=== PATIENT | female | born 1960 | race Caucasian/White ===

== ENCOUNTER → 2016-07-08 | Outpatient (CLI) | payer OTHER ==
--- NOTE | 2016-07-08 13:51 | MR ---
EXAMINATION TYPE: MR lumbar spine wo con DATE OF EXAM: 07/08/2016 8:19 AM COMPARISON: 07/23/2015 HISTORY: 56-year-old female with low back pain w/o sciatica TECHNIQUE: Multiplanar, multisequence images of the lumbar spine were acquired. FINDINGS: Vertebral body heights are preserved. Vertebral mild disc desiccation especially in the mid to lower lumbar spine redemonstrated with mild disc height loss and posterior disc protrusion with bulging disc at L4-L5. Additional mild disc bulge s at L3-L4 and L5-S1. Ligamentum flavum thickening mid to lower lumbar spine with facet degenerative change. No suspicious bone marrow replacement. Redemonstrated fatty Modic type II endplate change at L4-L5 wi th some increasing Modic type I endplate changes towards the right at this level. Conus medullaris is normal. No suspicious bone marrow replacement. At T12-L1, no spinal canal or foraminal stenosis. At L1-L2, no spinal canal or neural foraminal stenosis. At L2-L3, minimal leftward disc bulging minimally encroaching onto the inferior left neural foramen. No spinal canal stenosis. At L3-L4, there is mild diffuse disc bulge and mild facet degenerative change. Minimal ventral impres deandra on the thecal sac without significant spinal canal stenosis. Changes result in similar mild left and minimal inferior right neuroforaminal stenosis. At L4-L5, marked hypertrophic facet arthropathy with ligamentum flavum thickening, diffuse disc bulge , posterior disc protrusion, and grade 1 anterolisthesis is also redemonstrated. Similar mild overall spinal canal stenosis with moderate to severe right neural foraminal stenosis, slightly increased an d similar moderate left neuroforaminal stenosis. Disc material closely approaches and may abuts both traversing L5 nerve roots. At L5-S1, diffuse disc bulge with facet degenerative change. Similar moderate left neuroforaminal magali nosis. No spinal canal stenosis. No prevertebral or paravertebral soft tissue abnormality seen. IMPRESSION: 1. Relatively similar degenerative changes mid to lower lumbar spine, greatest at L4-L5 with grade 1 anterolisthesis and mild spinal canal stenosis. 2. Moderate to severe right neuroforaminal stenosis at L4-L5 is slightly increased with similar moder ate left neuroforaminal stenosis. Disc material continues to closely approach and possibly abut both traversing L5 nerve roots. 3. Similar mild left neuroforaminal stenosis at L3-L4 and moderate left neuroforaminal stenosis at L5 -S1.
== END ==
LOC: RADMRIMAIN 07:30
PROVIDERS: ATTEND Neurological Surgery
DX: M48.06 Spinal stenosis, lumbar region (principal); M51.26 Other intervertebral disc displacement, lumbar region
CPT/HCPCS: 72148

== ENCOUNTER → 2016-07-09 | Outpatient (CLI) | payer OTHER ==
--- NOTE | 2016-07-09 09:52 | MR ---
EXAMINATION TYPE: MR cervical spine wo con DATE OF EXAM: 07/09/2016 9:21 AM COMPARISON: NONE HISTORY: neck pain, reddy Multiplanar MultiSpin echo imaging of the cervical spine was performed. Comparison: none C2-C3: No evidence for degenerative disc disease. No disc bulge/herniation or protrusion. No Canal stenosis. Foramina are patent bilaterally. C3-C4: Mild disc desiccation noted. Posterior disc bulge without evidence for herniation. No evidence for central stenosis. Bilateral foraminal are patent. C4-C5: No evidence for degenerative disc disease. No disc bulge/herniation or protrusion. No Canal stenosis. Foramina are patent bilaterally. C5-C6: Moderate disc desiccation identified. Mild posterocentral subligamentous disc herniation effac es the ventral thecal sac. Mild resultant central stenosis. Bilateral foraminal encroachment left gre ater than right. C6-C7: No evidence for degenerative disc disease. No disc bulge/herniation or protrusion. No Canal stenosis. Foramina are patent bilaterally. C7-T1: No evidence for degenerative disc disease. No disc bulge/herniation or protrusion. No Canal stenosis. Foramina are patent bilaterally. Cervical segments are intact. There is normal alignment. Cervical spinal cord is of normal signal. Craniovertebral junction relationships are within normal limits. Incidental multiple hemangiomas. IMPRESSION: 1. Degenerative disc disease as discussed. 2. Posterocentral disc herniation with mild central stenosis at C5-6.
== END | disposition home or self-care (01) ==
LOC: RADMRIMAIN 08:42
PROVIDERS: ATTEND Neurological Surgery
DX: M48.02 Spinal stenosis, cervical region (principal); M50.222 Other cervical disc displacement at C5-C6 level; M50.30 Other cervical disc degeneration, unspecified cervical region
CPT/HCPCS: 72141

== ENCOUNTER → 2017-02-01 | Outpatient (CLI) | payer OTHER ==
--- NOTE | 2017-02-03 09:07 | MM ---
Reason for exam: screening (asymptomatic). Last mammogram was performed 1 year and 1 month ago. History: Patient is postmenopausal. Family history of breast cancer in sister at age 58. Physical Findings: A clinical breast exam by your physician is recommended on an annual basis and results should be correlated with mammographic findings. MG Screening Mammo w CAD Bilateral CC and MLO view(s) were taken. Prior study comparison: January 09, 2016, bilateral MG screening mammo w CAD. December 08, 2013, bilateral MG screening mammo w CAD. The breast tissue is heterogeneously dense. This may lower the sensitivity of mammography. No significant changes when compared with prior studies. ASSESSMENT: Negative, BI-RAD 1 RECOMMENDATION: Routine screening mammogram of both breasts in 1 year.
== END | disposition home or self-care (01) ==
LOC: RADMAMWWP 07:19
PROVIDERS: ATTEND Family Medicine
DX: Z12.31 Encounter for screening mammogram for malignant neoplasm of breast (principal)

== ENCOUNTER → 2017-03-16 | Outpatient (CLI) | payer OTHER ==
--- NOTE | 2017-03-16 09:00 | CT ---
EXAMINATION TYPE: CT angio head DATE OF EXAM: 03/16/2017 COMPARISON: NONE HISTORY: Personal history of TIA/Cerebral infarction CT DLP: 2011 mGycm CONTRAST: CTA [place] with 3-D reconstruction is performed and with IV Contrast, patient injected with 100 mL of Omnipaque 350. Contrast CTA of the [place] was performed 3-D reconstruction imaging obtained at a separate workstation. Vertebrobasilar system as well as intracranial portions of the internal carotid arterie s and their major tributaries are patent. I do not see evidence for sizable aneurysm or vascular mal formation. Please note MRI provides greater sensitivity and specificity. Visualized brain appears g rossly unremarkable. IMPRESSION: No evidence for sizable aneurysm or vascular malformation.
== END | disposition home or self-care (01) ==
LOC: RADCTMAIN 07:59
PROVIDERS: ATTEND Physician Assistant
DX: Z09 Encounter for follow-up examination after completed treatment for conditions other than malignant neoplasm (principal); Z86.73 Personal history of transient ischemic attack (TIA), and cerebral infarction without residual deficits
CPT/HCPCS: 70496; Q9967

== ENCOUNTER → 2017-06-04 | Outpatient (CLI) | payer OTHER ==
--- NOTE | 2017-06-04 16:13 | MR ---
EXAMINATION TYPE: MR angio head wo con DATE OF EXAM: 06/04/2017 4:04 PM COMPARISON: NONE HISTORY: Z86.73 History of recurrent TIAs Three-dimensional [id number] intracranial MRA was performed with multiple intensity projection im ages submitted and source data reviewed at the workstation. The vertebrobasilar system as well as intracranial portions of the internal carotid arteries and thei r major tributaries are patent. I do not see evidence for sizable aneurysm or vascular malformation. IMPRESSION: Normal study.
--- NOTE | 2017-06-04 16:28 | MR ---
PRE AND POSTCONTRAST ENHANCED MRI OF THE BRAIN: CLINICAL HISTORY: Z86.73 History of recurrent TIAs CONTRAST: Gadavist 5.0m COMPARISON: 07/17/2015 Multiplanar and multispin-echo imaging of the brain was performed both before and after the administr ation of contrast. The ventricles, basal cisterns and sulci overlying the cerebral convexities are within normal limits. There is no evidence for midline shift or mass effect. Acute intracranial hemorrhage or extra-axial collection is not evident. There are no abnormal areas of increased or decreased signal intensity within the brain parenchyma. Following contrast administration, there is no evidence for pathologic enhancement or enhancing mass. The paranasal sinuses and mastoid air cells are well-aerated. IMPRESSION: Unremarkable pre and postcontrast enhanced MRI of the brain.
--- NOTE | 2017-06-05 07:50 | ECHOF ---
Referral Reason:Z86.73 History of recurrent TIAs MEASUREMENTS -------- HEIGHT: 165.1 cm WEIGHT: 56.2 kg BP: IVSd: 1.0 cm (0.6 - 1.1) LVIDd: 3.7 cm (3.9 - 5.3) LVPWd: 0.9 cm (0.6 - 1.1) IVSs: 1.2 cm LVIDs: 3.1 cm LVPWs: 1.1 cm LA Diam: 2.0 cm (2.7 - 3.8) Ao Diam: 2.7 cm (2.0 - 3.7) AV Cusp: 1.7 cm (1.5 - 2.6) LA Diam: 2.8 cm (2.7 - 3.8) MV EXCURSION: 17.961 mm (> 18.000) MV EF SLOPE: 78 mm/s (70 - 150) EPSS: 0.4 cm MV E Josemanuel: 0.56 m/s MV DecT: 184 ms MV A Josemanuel: 0.63 m/s MV E/A Ratio: 0.90 RAP: 5.00 mmHg RVSP: 13.69 mmHg FINDINGS -------- Sinus rhythm. This was a technically good study. LV size, wall thickness and systolic function are normal, with an EF greater than 55%. The left zoey tricular size is normal. The right ventricle is normal in size. , and the LA measures 2.0cm. The right atrial size is normal. The aortic valve is trileaflet, and appears structurally normal. No aortic stenosis or regurgitation. Mild mitral regurgitation is present. Mild tricuspid regurgitation present. There is no evidence of pulmonary hypertension. The right v entricular systolic pressure, as measured by Doppler, is 13.69mmHg. There is no pulmonic regurgitation present. The aortic root size is normal. There is no pericardial effusion. CONCLUSIONS -------- 1. LV size, wall thickness and systolic function are normal, with an EF greater than 55%. 2. The left ventricular size is normal. 3. The aortic valve is trileaflet, and appears structurally normal. No aortic stenosis or regurgitati on. 4. Mild mitral regurgitation is present. 5. Mild tricuspid regurgitation present. 6. There is no evidence of pulmonary hypertension. 7. There is no pulmonic regurgitation present. 8. The aortic root size is normal. 9. There is no pericardial effusion. HEMATOLOGIST ONCOLOGIST: Marissa Jewell RDCS
== END | disposition home or self-care (01) ==
LOC: RADMRIMAIN 14:38
PROVIDERS: ATTEND Psychiatry & Neurology Neurology
DX: I08.1 Rheumatic disorders of both mitral and tricuspid valves (principal); Z86.73 Personal history of transient ischemic attack (TIA), and cerebral infarction without residual deficits; Z13.89 Encounter for screening for other disorder
CPT/HCPCS: 93306; 82565; 70544; 70553; 36415; A9581

== ENCOUNTER → 2017-07-28 | Outpatient (CLI) | payer OTHER ==
--- NOTE | 2017-07-29 06:34 | US ---
EXAMINATION TYPE: US carotid duplex BILAT DATE OF EXAM: 07/28/2017 COMPARISON: Carotid ultrasound January 09, 2016 CLINICAL HISTORY: Z86.73 HX Of Recurrent TIA. Multiple TIA's-- last was in May. HTN- on meds. Hig h cholesterol-- on meds. On aspirin. EXAM MEASUREMENTS: RIGHT: Peak Systolic Velocity (PSV) cm/sec ----- Right CCA: 94.1 ----- Right ICA: 105.6 ----- Right ECA: 100.4 ICA/CCA ratio: 1.1 RIGHT: End Diastole cm/sec ----- Right CCA: 34.7 ----- Right ICA: 59.0 ----- Right ECA: 42.2 LEFT: Peak Systolic Velocity (PSV) cm/sec ----- Left CCA: 87.5 ----- Left ICA: 83.1 ----- Left ECA: 111.9 ICA/CCA ratio: 0.9 LEFT: End Diastole cm/sec ----- Left CCA: 28.1 ----- Left ICA: 40.2 ----- Left ECA: 37.8 VERTEBRALS (direction of flow): Right Vertebral: Antegrade Left Vertebral: Antegrade Rhythm: Normal Grayscale images redemonstrate no significant focal plaque at carotid bulb level bilaterally. IMPRESSION: No hemodynamically significant stenosis is seen in either internal carotid artery. No significant change from prior.
== END | disposition home or self-care (01) ==
LOC: RADUSWWP 16:50
PROVIDERS: ATTEND Psychiatry & Neurology Neurology
DX: Z09 Encounter for follow-up examination after completed treatment for conditions other than malignant neoplasm (principal); Z86.73 Personal history of transient ischemic attack (TIA), and cerebral infarction without residual deficits
CPT/HCPCS: 93880

== ENCOUNTER 2017-08-02 19:49 | Emergency (ER) | payer OTHER ==
--- NOTE | 2017-08-02 20:21 | ED ---
Psych HPI - General Chief Complaint: Psychiatric Symptoms Stated Complaint: MENTAL HEALTH Time Seen by Provider: 08/02/17 19:54 Source: patient, police, EMS Mode of arrival: EMS - History of Present Illness Initial Comments: This 57-year-old white female presents for psychiatric evaluation/medical clearance. She was [place] in [place] the [employer]. She barely had been filing some complaints regarding people being around her mobile home. She states that there has been multiple gaining bangers around her windows and they are very threatening. She apparently took a picture of the abdomen showed this to the [employer] but there is nobody in the picture. She is very paranoid and seems to be quite manic. She is denying any current medical complaints. She denies any alcohol or drug use. She does relate that she's had some minor depression in the past but denies any other psychiatric history. She denies being on any psychiatric medications currently. No other complaints or modifying factors. - Related Data Home Medications Medication Instructions Recorded Confirmed Cyclobenzaprine [Flexeril] 5 mg PO TID PRN 07/05/15 07/17/15 Levothyroxine Sodium [Synthroid] 50 mcg PO QAM 07/05/15 07/17/15 Butalb/APAP/Caff 50-325-40Mg 1 tab PO Q4H PRN 07/17/15 07/17/15 [Fioricet 50-325-40] HYDROcodone/APAP 5-325MG [Wilmer 1 tab PO Q6HR PRN 07/17/15 07/17/15 5-325] SUMAtriptan SUCCINATE [Imitrex] 50 mg PO BID PRN 07/17/15 07/17/15 Previous Rx's Medication Instructions Recorded Ibuprofen [Motrin] 600 mg PO Q6HR PRN #30 tab 07/05/15 Atorvastatin Calcium [Lipitor] 20 mg PO DAILY #30 tab 07/18/15 Buprenorphine [Butrans 5 MCG/HR] 1 each TRANSDERM WEEKLY #4 patch 07/18/15 Nicotine 21Mg/24Hr Patch [Habitrol] 1 patch TRANSDERM DAILY #14 patch 07/18/15 Allergies Allergy/AdvReac Type Severity Reaction Status Date / Time nerve medication Allergy Unknown Uncoded 07/17/15 10:40 Review of Systems ROS Statement: Those systems with pertinent positive or pertinent negative responses have been documented in the HPI. ROS Other: All systems not noted in ROS Statement are negative. Past Medical History Past Medical History: COPD, GERD/Reflux, Osteoarthritis (OA), Pneumonia, Thyroid Disorder Additional Past Medical History / Comment(s): scoliosis- lt leg a bit shorter than rt, migraines , nerve damage in hand and neck, abdominal hernia, KIDNEY STONE, HEMORRHOIDS-"occ has a little blood after a hard bm", lower back pain History of Any Multi-Drug Resistant Organisms: None Reported Past Surgical History: Orthopedic Surgery, Tubal Ligation Additional Past Surgical History / Comment(s): laproscopy"thats'how they found my endometreosis", laser eye sx for"pressure build up ", rt hand sx, colonoscopy ,egd, some teeth extracted. Past Anesthesia/Blood Transfusion Reactions: No Reported Reaction Past Psychological History: No Psychological Hx Reported Smoking Status: Current every day smoker Past Alcohol Use History: None Reported Past Drug Use History: Marijuana - Past Family History Father Family Medical History: Myocardial Infarction ([place]) Additional Family Medical History / Comment(s): from [place] at age 52 Mother Family Medical History: COPD, Thyroid Disorder Additional Family Medical History / Comment(s): mom is alive at age 78 , copd o2 dependant General Exam - General Exam Comments Initial Comments: GENERAL: The patient is well nourished and well hydrated. VITAL SIGNS: Heart rate, blood pressure, respiratory rate reviewed as recorded in nurse's notes. EYES: Pupils are round and reactive. Extraocular movements are intact. No conjunctival / lid redness or swelling. ENT: No external evidence of injury, swelling, or ecchymosis. Airway is patent. Throat is clear. NECK: Nontender. No swelling or evidence of injury. No subcutaneous emphysema. Trachea is midline. No thyroid mass. HEART: Regular rate and rhythm. Good peripheral pulses. LUNGS/CHEST: Breath sounds clear and equal bilaterally. No rales, rhonchi, or wheezes. No ecchymosis, subcutaneous emphysema, or tenderness. ABDOMEN: Abdomen soft without tenderness. No palpable masses or organomegaly. No peritoneal signs. No abdominal wall swelling or ecchymosis. EXTREMITIES: No extremity tenderness. Normal muscle tone and function. No thoracolumbar tenderness. NEUROLOGIC: Sensation is grossly intact. Cranial nerve exam reveals face is symmetrical, tongue is midline, speech is clear. SKIN: No abrasions or ecchymosis is noted. No induration or masses noted. PSYCHIATRIC: Alert and in no apparent distress. She does seem to be quite paranoid and seems manic. Limitations: no limitations Course Vital Signs 08/02/17 20:00 Temperature 98 F Pulse Rate 98 Respiratory 16 Rate Blood Pressure 140/87 O2 Sat by Pulse 99 Oximetry Medical Decision Making - Medical Decision Making The patient was seen and examined. The alcohol breath test is negative. The patient is cleared for further psychiatric evaluation. The psychiatric nurse did evaluate the patient case is discussed with her. They feel as though she is stable for discharge home. They do relate that family members also relate that there are people around the mobile home and essentially collaborate her story. They feel as though she may have psychological problems but does not meet inpatient criteria and is stable for discharge and follow-up as an outpatient. Disposition Clinical Impression: Paranoia Disposition: HOME SELF-CARE Condition: Good Additional Instructions: We saw you today for mental health screening. Please follow-up with your doctor in the near future for further evaluation. Please return if any other problems to occur in the meantime. Is patient prescribed a controlled substance at d/c from ED?: No Referrals: Donis Pittman DO [Primary Care Provider] - 1-2 days Time of Disposition: 21:26
[2017-08-02 21:52] VITALS: BP 110/57; PULSE 97; RESP 18; TEMP 97.7
== END 2017-08-02 21:52 | disposition home or self-care (01) ==
LOC: EC 19:49
DX: F22 Delusional disorders (principal); E07.9 Disorder of thyroid, unspecified; M19.90 Unspecified osteoarthritis, unspecified site; F17.200 Nicotine dependence, unspecified, uncomplicated; Z79.899 Other long term (current) drug therapy; Z88.8 Allergy status to other drugs, medicaments and biological substances
CPT/HCPCS: 82075; 99284

== ENCOUNTER 2017-08-05 08:23 | Day surgery (SDC) | payer OTHER ==
[2017-08-05 08:39] VITALS: RESP 18; TEMP 97.5
[2017-08-05] MEDS ORDERED: SODIUM CHLORIDE 0.9% 500 ML IV ONE (08:47)
[2017-08-05] MEDS ORDERED: fentaNYL (PF) 50 MCG/ML 2 ML AMP ONE (10:23)
[2017-08-05] MEDS ORDERED: MIDAZOLAM 2 MG/2 ML VIAL ONE (10:24)
[2017-08-05] MEDS: BENZOCAINE SPRAY 1 CAN MUCOUS MEM ONE ×2 (10:28→10:39)
[2017-08-05] MEDS ORDERED: MIDAZOLAM 2 MG/2 ML VIAL IVP ONE ×2 (10:39→10:45)
[2017-08-05] MEDS: fentaNYL (PF) 50 MCG/ML 2 ML AMP IVP ONE ×3 (10:39→10:55)
--- NOTE | 2017-08-05 11:25 | ECHOT ---
TRANSESOPHAGEAL ECHOCARDIOGRAM DATE OF SERVICE: 08/05/2017 PERFORMING PHYSICIAN: Moe Christopher MD, Cassandra Architect. PROCEDURE PERFORMED: Transesophageal echocardiogram. INDICATION: This is a pleasant 57-year-old female patient who was experiencing intermittent episodes of TIA and she was seen by Dr. José who recommended proceeding with a GRACIELA to rule out any cardiac source of embolization. COMPLICATION: None. LEVEL OF SEDATION: Moderate with sedation length of 8 minutes. PROCEDURE DESCRIPTION: After obtaining an informed consent, explaining the procedure, benefits, risks, complications and alternatives, the patient was brought to the transesophageal echocardiogram suite. A pulse oximetry and heart rate monitors were attached to the patient prior to the procedure. The patient's throat was sprayed using lidocaine locally. Following that, the patient was turned into left lateral position. A bite guard was placed and the patient was then sedated with the above doses of Versed and fentanyl in divided doses. Following that, the transesophageal echocardiogram probe was advanced through the bite guard into the mid esophagus where 2-D echocardiogram images as well as color Doppler images of various cardiac structures were obtained. We evaluated the interatrial septum using 2-D echocardiogram, color Doppler, and contrast study. The procedure was completed. There were no complications. FINDINGS: The left ventricular dimension and systolic function appeared to be within normal limits with an ejection fraction of 50%-55% and normal wall motion. The right ventricle is of normal size and function. The left atrium and right atrium are mildly dilated. The left atrial appendage appeared to be free from thrombus. The aortic valve is trileaflet valve without stenosis or regurgitation. The mitral valve seems to be mildly thickened with trace MR. Normal tricuspid valve and pulmonic valve. CONCLUSION: 1. There is no evidence of cardiac source of embolization seen. 2. Normal left atrial appendage without any evidence of thrombus. 3. Intact interatrial septum without any evidence of patent [place]. 4. Normal left ventricular dimension and systolic function. 5. Normal cardiac chamber sizes. 6. Thickened mitral valve leaflets with mild mitral regurgitation only. 7. Trileaflet aortic valve without stenosis or regurgitation. 8. Normal tricuspid valve and pulmonic valve. 9. Normal aortic root dimension. 10.No evidence of pericardial effusion. MMODL / IJN: [id number] /
[2017-08-05 11:48] VITALS: BP 109/62; PULSE 88
== END 2017-08-05 12:03 | disposition home or self-care (01) ==
LOC: CATHCVL 08:23
PROVIDERS: ATTEND Internal Medicine Interventional Cardiology
DX: G45.9 Transient cerebral ischemic attack, unspecified (principal); I34.0 Nonrheumatic mitral (valve) insufficiency; Z86.73 Personal history of transient ischemic attack (TIA), and cerebral infarction without residual deficits
CPT/HCPCS: 93312; 93320; 93325; J2250; J3010